=== PATIENT | female | born 1965 | race Asian ===

== ENCOUNTER 2017-03-06 16:41 | Emergency (ER) | payer OTHER ==
[~2017-03-06] VITALS: Ht 152.4 cm; Wt 54.5 kg
[2017-03-06] MEDS ORDERED: OMEP10 PO (16:46)
[2017-03-06] MEDS ORDERED: LISI1TAB9 (16:46)
[2017-03-06 16:52] LABS: GLUCOSE,POINT OF CARE 113 MG/DL (70-110)
[2017-03-06] MEDS ORDERED: TraMADol HCL 50 MG TABLET PO ONE (19:00)
[2017-03-06] MEDS ORDERED: IBUPROFEN 100 MG/5 ML SUSPENSION UDCUP PO ONE (19:00)
[2017-03-06 19:53] VITALS: BP 139/84
== END 2017-03-06 19:57 | disposition home or self-care (01) ==
LOC: EMS 16:42 → EEVIPCON 16:42 → EMS 19:57
DX: M25.521 Pain in right elbow (principal); M79.89 Other specified soft tissue disorders; G89.29 Other chronic pain; E11.9 Type 2 diabetes mellitus without complications; I10 Essential (primary) hypertension; Z88.6 Allergy status to analgesic agent; Z88.5 Allergy status to narcotic agent
CPT/HCPCS: 82962; 99283